=== PATIENT | male | born 1995 | race African-American/Black ===

== ENCOUNTER 2019-09-04 10:15 | Emergency (ER) | payer SELFPAY ==
[~2019-09-04] VITALS: Ht 180.3 cm; Wt 68.0 kg
[2019-09-04 10:24] VITALS: BP 132/73
== END 2019-09-04 11:41 | disposition home or self-care (01) ==
LOC: ER 10:36
DX: Z00.00 Encounter for general adult medical examination without abnormal findings (principal)
CPT/HCPCS: 99283